=== PATIENT | female | born 1990 | race Caucasian/White ===

== ENCOUNTER 2019-02-01 11:10 | Outpatient (CLI) | payer OTHER, SELFPAY ==
[2019-02-01 11:26] VITALS: BP 151/81; PULSE 108
[2019-02-01 11:31] VITALS: BP 137/73; PULSE 101
[2019-02-01 11:46] VITALS: BP 135/69; PULSE 90
[2019-02-01 11:52] LABS: Basophils Percent Auto 0.3 % (0.2-1.2); Eosinophils Percent Auto 0.3 % (0-4.4); Hematocrit 39.3 % (37.0-47.0); Hemoglobin 12.3 g/dL (12.0-15.0); Immature Granulocyte Absolute 0.05 K/mm3 (0.00-0.031); Immature Granulocyte Percent A 0.4 % (0-0.5); Lymphocytes Absolute Auto 1.83 K/mm3 (0.9-3.2); Lymphocytes Percent Auto 16.4 % (18.3-44.2); Mean Corpuscular HGB Conc 31.3 g/dl (32-36); Mean Corpuscular Hemoglobin 28.6 pg (26-34); Mean Corpuscular Volume 91.4 fl (80-100); Mean Platelet Volume 13.5 fl (7.4-10.4); Monocytes Absolute Auto 0.8 K/mm3 (0.1-0.6); Monocytes Percent Auto 7.3 % (2.6-8.5); Neutrophils Absolute Auto 8.4 K/mm3 (1.3-6.7); Neutrophils Percent Auto 75.3 % (45.5-73.1); Platelet Count Result 160 k/mm3 (150-375); Red Cell Distribution Width 12.7 % (11.5-14.5); White Blood Count 11.2 K/mm3 (4.5-10.0)
[2019-02-01 12:01] VITALS: BP 133/69; PULSE 96
[2019-02-01 12:09] LABS: Alanine Aminotransferase 24 U/L (4-35); Albumin Level 3.5 g/dL (3.5-5.1); Alkaline Phosphatase 104 U/L (38-126); Aspartate Amino Transferase 19 U/L (14-36); Bilirubin,Total 0.1 mg/dL (0.2-1.3); Blood Urea Nitrogen 8 mg/dL (7-17); Calcium 8.6 mg/dL (8.4-10.2); Carbon Dioxide 23 mmol/L (22-30); Chloride 103 mmol/L (98-107); Estimated Glomerular Filt Rate > 60; Glucose 100 mg/dL (65-105); Potassium 4.1 mmol/L (3.4-5.0); Sodium 133 mmol/L (137-145); Uric Acid 4.8 mg/dL (2.5-7.5)
[2019-02-01 12:16] VITALS: BP 125/59; PULSE 83
--- NOTE | 2019-02-01 12:16 | PC.NURSE ---
called Dr. Lydia Hernandez and reported PIH lab result and NST result. BP updated. discharge order received.
[2019-02-01 12:22] VITALS: BP 125/59; PULSE 95
--- NOTE | 2019-02-01 12:45 | P.PNOB_ITS ---
OB - Triage/Final Diagnosis Visit Information Date of evaluation: 02/01/19 Reason for evaluation: other (htn) Evaluation Laboratory results: Laboratory Tests 02/01/19 02/01/19 11:39 11:40 WBC 11.2 H RBC 4.30 Hgb 12.3 Hct 39.3 MCV 91.4 MCH 28.6 MCHC 31.3 L RDW 12.7 Plt Count 160 MPV 13.5 H Immature Gran % (Auto) 0.4 Neut % (Auto) 75.3 H Lymph % (Auto) 16.4 L [place] % (Auto) 7.3 Eos % (Auto) 0.3 Baso % (Auto) 0.3 Lymph # (Auto) 1.83 [place] # (Auto) 0.8 H Eos # (Auto) 0.0 Baso # (Auto) 0.0 Abs Immat Gran (auto) 0.05 H Absolute Neuts (auto) 8.4 H Absolute Nucleated RBC 0.0 Nucleated RBC % 0.0 % Immature Plt Fraction 15.0 H Sodium 133 L Potassium 4.1 Chloride 103 Carbon Dioxide 23 BUN 8 Creatinine 0.60 L Estim Creat Clear Calc Not Reportable Estimated GFR > 60 Glucose 100 Uric Acid 4.8 Calcium 8.6 Total Bilirubin 0.1 L AST 19 ALT 24 Alkaline Phosphatase 104 Total Protein 7.0 Albumin 3.5 Vital signs: Vital Signs - 24 hr 02/01/19 11:26 02/01/19 11:31 02/01/19 11:46 Pulse Rate 108 H 101 H 90 Blood Pressure 151/81 H 137/73 135/69 02/01/19 12:01 02/01/19 12:16 Pulse Rate 96 83 Blood Pressure 133/69 125/59 L
== END 2019-02-01 12:25 | disposition home or self-care (01) ==
LOC: ANHOBOP 11:15 → ANHOBPP 12:20
PROVIDERS: Visit Provider Obstetrics & Gynecology
DX: O13.9 Gestational [pregnancy-induced] hypertension without significant proteinuria, unspecified trimester (principal); Z3A.00 Weeks of gestation of pregnancy not specified
CPT/HCPCS: 36415; 59025; 80053; 84550; 85025; 99199

== ENCOUNTER 2019-04-18 11:30 | Outpatient (CLI) | payer OTHER, SELFPAY ==
--- NOTE | ~2019-04-18 | US_ITS ---
EXAMINATION: US right upper quadrant DATE: 04/18/2019 13:02 INDICATION: Right upper quadrant abdominal pain TECHNIQUE: Multiple grayscale and Doppler ultrasound images of the abdomen were obtained. COMPARISON: CT dated 12/21/2014 FINDINGS: The pancreatic head and body are normal in appearance. The pancreatic tail is not visualized. Liver has normal echogenicity and contour, with a smooth surface. No liver lesion identified. No intrahepat ic biliary duct dilation suspected. Portal venous flow was seen in the hepatopetal, normal direction and has normal Doppler waveform. The visualized proximal inferior vena cava is normal. The gallbladde r is normal in appearance. There is no cholelithiasis. The common bile duct measures 4 mm, which is normal. Sonographic Crawley sign was reported as positive by the turning and beading machine operator. Visual is portions of th e right kidney demonstrates normal contour and echogenicity with no hydronephrosis. IMPRESSION: 1. Positive sonographic Crawley's but with normal-appearing nondilated gallbladder and no cholelithias is which would argue against acute cholecystitis. If there is continued clinical concern for acute ch olecystitis could consider HIDA scan for further evaluation. Reviewed, dictated and finalized at location A. ODONTIST SMALL BUSINESS OWNER IMPRESSION: 1. Positive sonographic Crawley's but with normal-appearing nondilated gallbladd er and no cholelithiasis which would argue against acute cholecystitis. If ther e is continued clinical concern for acute cholecystitis could consider HIDA sca n for further evaluation.
[2019-04-18 12:33] LABS: Basophils Percent Auto 0.5 % (0.2-1.2); Eosinophils Absolute Auto 0.1 K/mm3 (0-0.3); Eosinophils Percent Auto 0.8 % (0-4.4); Hematocrit 38.2 % (37.0-47.0); Immature Granulocyte Absolute 0.01 K/mm3 (0.00-0.031); Immature Granulocyte Percent A 0.2 % (0-0.5); Immature Platelet Fraction Pct 11.4 % (0.9-11.2); Lymphocytes Percent Auto 28.7 % (18.3-44.2); Mean Corpuscular HGB Conc 31.4 g/dl (32-36); Mean Corpuscular Hemoglobin 26.9 pg (26-34); Mean Corpuscular Volume 85.7 fl (80-100); Mean Platelet Volume 13.6 fl (7.4-10.4); Monocytes Absolute Auto 0.4 K/mm3 (0.1-0.6); Monocytes Percent Auto 6.7 % (2.6-8.5); Neutrophils Percent Auto 63.1 % (45.5-73.1); Platelet Count Result 202 k/mm3 (150-375); Red Blood Count 4.46 M/mm3 (4.2-5.4); Red Cell Distribution Width 12.6 % (11.5-14.5); White Blood Count 6.3 K/mm3 (4.5-10.0)
[2019-04-18 12:41] LABS: Alanine Aminotransferase 25 U/L (4-35); Albumin Level 4.2 g/dL (3.5-5.1); Alkaline Phosphatase 62 U/L (38-126); Amylase 51 U/L (30-110); Aspartate Amino Transferase 20 U/L (14-36); Bilirubin,Total 0.1 mg/dL (0.2-1.3); Blood Urea Nitrogen 16 mg/dL (7-17); Calcium 8.9 mg/dL (8.4-10.2); Carbon Dioxide 24 mmol/L (22-30); Chloride 102 mmol/L (98-107); Estimated Glomerular Filt Rate > 60; Glucose 86 mg/dL (65-105); Lipase 171 U/L (23-300); Sodium 138 mmol/L (137-145)
[2019-04-18 12:49] LABS: Hemoglobin A1C 5.1 % (<5.7)
== END 2019-04-18 11:31 | disposition home or self-care (01) ==
PROVIDERS: PCP Family Medicine; Visit Provider Nurse Practitioner
DX: R53.83 Other fatigue (principal); E03.9 Hypothyroidism, unspecified; R10.11 Right upper quadrant pain; Z13.1 Encounter for screening for diabetes mellitus
CPT/HCPCS: 36415; 76705; 80053; 82150; 83036; 83690; 84443; 85025; 85055

== ENCOUNTER 2019-04-26 06:40 | Outpatient (CLI) | payer OTHER, SELFPAY ==
--- NOTE | ~2019-04-26 | NM_ITS ---
EXAMINATION: NM hepatobiliary w pharm EXAM DATE: 04/26/2019 08:43 INDICATION: Cholecystitis. TECHNIQUE: 5 mCi Tc-99m mebrofenin (Choletec) was administered intravenously. Scintigraphic images o f the abdomen were obtained for one hour. At the 1 hour time point, 1.5 mcg sincalide (Kinevac) was a dministered by slow intravenous infusion, and imaging was continued for 30 minutes. Gallbladder eject ion fraction was calculated by the technologist. There is no prior study for comparison. FINDINGS: There is normal clearance of radiotracer from the blood pool. There is homogeneous tracer u ptake by the liver. Activity progresses to the gallbladder and bowel. The gallbladder ejection fract ion (GBEF) is 60 % (most patients with gallbladder dysfunction have GBEF < 35%, but there is overlap with the normal range of 10-90%). IMPRESSION: Gallbladder ejection fraction 60%, within normal range. Reviewed, dictated and finalized at location A. WINDING MACHINE OPERATOR
== END 2019-04-26 06:41 | disposition home or self-care (01) ==
PROVIDERS: Visit Provider Obstetrics & Gynecology
DX: K81.0 Acute cholecystitis (principal)
CPT/HCPCS: 78227; A9537; J2805

== ENCOUNTER 2020-01-31 14:50 | Emergency (ER) | payer OTHER, SELFPAY ==
--- NOTE | 2020-01-31 14:56 | ED.URI ---
HPI - URI/Sore Throat General Chief Complaint: Upper Respiratory Infection Stated Complaint: sore throat Time Seen by Provider: 01/31/20 14:56 Source: patient Mode of arrival: ambulatory Limitations: no limitations History of Present Illness HPI Narrative: Malissa Francois is a 29 yo female with a PMH of anxiety, GERD, who has been tested for covid without test result yet. She states that she has a worsening sore throat and wants to be checked for strep. She had initial symptoms last Wednesday with eye infection and fatigue with beginning of sore throat was tested on Wednesday for Covid and throat has been worsening since Wednesday, she finds it hard to swallow food or drink liquids, general pain in her throat Related Data Home Medications Medication Instructions Recorded Confirmed alprazolam 0.5 mg tablet 0.5 mg PO Q12-24H PRN 04/25/19 01/31/20 levonorgest-eth.estradiol-iron 1 tablet PO DAILY 01/31/20 01/31/20 [Balcoltra] Allergies Allergy/AdvReac Type Severity Reaction Status Date / Time meperidine [From Demerol] Allergy Mild Hypotension Verified 01/31/20 15:03 metformin Allergy Mild dizziness Verified 01/31/20 15:03 Review of Systems Review of Systems: Narrative: CONSTITUTIONAL: Denies fever, chills, sweats. EYES: Denies visual changes, redness, discharge. ENT: Denies rhinorrhea, mild congestion, complaining of severe sore throat, otalgia. CARDIOVASCULAR: Denies chest pain, palpitations, edema. RESPIRATORY: Denies dyspnea, wheezing, cough GASTROINTESTINAL: Denies abdominal pain, nausea, vomiting, diarrhea. GENITOURINARY: Denies dysuria, hematuria, abnormal discharge SKIN: Denies rash or itching. NEUROLOGIC: Denies numbness, or focal weakness. PSYCHIATRIC: Denies anxiety or depression. [facility] Past Medical History Medical History (Updated 01/31/20 @ 15:09 by Isabel Lugo CNP) Anxiety GERD (gastroesophageal reflux disease) Morbid obesity Surgical History Surgical History History of endometriosis laparoscopic exploratory History of esophagogastroduodenoscopy (EGD) Family History Family History Father Family history of mental disorder Depression Grandparent Family history of lung cancer Family history of malignant neoplasm of uterus Family history of malignant neoplasm of breast Mother Patient's mother is in good health Other Family history of attention deficit hyperactivity disorder (ADHD) Family history of obesity Unknown family medical history Social History Social History Years smoked: 10 Smoking status: Former smoker Tobacco type: cigarettes Second hand tobacco smoke exposure: No Smoking end date: 03/08/16 Alcohol intake: never Substance use: never Gender identity (if verbalized by the patient): Female Spiritual care concerns: No Comments At time of signature, I agree with nursing past medical, surgical, social and family history. There is no relevant family history pertinent to the presenting complaint. Exam Narrative: Exam Narrative: GENERAL: This is a well-nourished, well-developed patient, in mild distress. HEAD: normocephalic, atraumatic. EYES: Sclera clear/white. Vision is grossly intact. EARS: External ears normal. Hearing grossly intact. NOSE: External nose normal without nasal discharge, nares without redness, mild rhinorrhea. THROAT: Mucous membranes moist, posterior pharynx very erythematous with peritonsillar swelling, left white dots in the back of the throat NECK: Neck supple, tender with swallowing or palpation CARDIOVASCULAR: Regular rate and rhythm without murmurs, gallops, or rubs. RESPIRATORY: Clear to auscultation. Breath sounds equal bilaterally. No wheezes, rales, or rhonchi. GASTROINTESTINAL: Abdomen soft, SKIN: warm, intact with no suspicious lesions or rash, good texture
[2020-01-31 15:01] VITALS: BP 136/75; PULSE 98; RESP 20; TEMP 36.4; O2SAT 99
== END 2020-01-31 15:30 | disposition home or self-care (01) ==
PROVIDERS: Emergency Provider Nurse Practitioner
DX: J02.9 Acute pharyngitis, unspecified (principal); Z87.891 Personal history of nicotine dependence; F41.9 Anxiety disorder, unspecified; K21.9 Gastro-esophageal reflux disease without esophagitis; E66.01 Morbid (severe) obesity due to excess calories; Z68.39 Body mass index [BMI] 39.0-39.9, adult
CPT/HCPCS: 87081; 87880; 99213; G0463

== ENCOUNTER 2020-03-26 07:22 | Emergency (ER) | payer OTHER, SELFPAY ==
--- NOTE | ~2020-03-26 | XR_ITS ---
EXAMINATION: XR finger 1st LT min 2V EXAM DATE: 03/26/2020 07:45 INDICATION: Cut the distal end of finger yesterday with a knife . Initial encounter. TECHNIQUE: Left 1st finger frontal, lateral and oblique projections obtained and reviewed. There i s no prior study for comparison. FINDINGS: There are no acute fractures or dislocations identified. There is no subcutaneous gas. Th e soft tissue is unremarkable. There are no radiopaque foreign bodies. IMPRESSION: Unremarkable left 1st finger. Reviewed, dictated and finalized at location A. IUM PROCESSING SUPERVISOR
[2020-03-26 07:23] VITALS: BP 152/88; PULSE 80; RESP 16; TEMP 36.6; O2SAT 100
[2020-03-26] MEDS: TETANUS,DIPHTHERIA,AC PERTUSSIS ADULT (0.5 ML) BOOSTRIX IM (07:54)
[2020-03-26] MEDS: IBUPROFEN 400 MG TABLET 800 MG PO (08:25)
--- NOTE | 2020-03-26 08:33 | ED.WOUNDLAC ---
HPI - Wound/Laceration General Chief Complaint: Wound/Laceration Stated Complaint: left thumb laceration Time Seen by Provider: 03/26/20 07:30 History of Present Illness HPI narrative: Patient is a 29-year-old female who presents ER with injury to the distal aspect of her right thumb. Patient was cutting a wax block with a knife when she stabbed herself with a steak knife. This occurred at 1 PM yesterday. She immediately washed it with soap and water and peroxide. She applied a pressure dressing. Its been throbbing through the night and she is noticed that she has had some numbness over the tip of her thumb so she opted to come in for evaluation. Tetanus is not up-to-date. She maintains full range of motion. Bleeding is controlled. She is unsure if the blade went all the way through her fingernail or not but does know that she struck her nail. Related Data Home Medications Medication Instructions Recorded Confirmed alprazolam 0.5 mg tablet 0.5 mg PO Q12-24H PRN 04/25/19 02/27/20 levonorgest-eth.estradiol-iron 1 tablet PO DAILY 01/31/20 02/27/20 [Balcoltra] Allergies Allergy/AdvReac Type Severity Reaction Status Date / Time meperidine [From Demerol] AdvReac Mild Hypotension Verified 03/26/20 07:36 metformin AdvReac Mild dizziness Verified 03/26/20 07:36 Review of Systems Constitutional: Constitutional: Denies chills and Denies fever(s) Musculoskeletal: Comments: Throbbing right first digit pain. Integumentary/Breasts: Comments: Laceration right first digit, no excessive bleeding Neurologic: Denies focal weakness and Reports numbness PMFSH Past Medical History Medical History (Updated 03/26/20 @ 08:37 by Carlos Jaramillo MD) Anxiety GERD (gastroesophageal reflux disease) Morbid obesity Surgical History Surgical History History of endometriosis laparoscopic exploratory History of esophagogastroduodenoscopy (EGD) Family History Family History Father Family history of mental disorder Depression Grandparent Family history of lung cancer Family history of malignant neoplasm of uterus Family history of malignant neoplasm of breast Mother Patient's mother is in good health Other Family history of attention deficit hyperactivity disorder (ADHD) Family history of obesity Unknown family medical history Social History Social History Years smoked: 10 Smoking status: Former smoker Tobacco type: cigarettes Second hand tobacco smoke exposure: No Smoking end date: 03/08/16 Alcohol intake: never Substance use: never Gender identity (if verbalized by the patient): Female Spiritual care concerns: No Exam Narrative: Exam Narrative: GENERAL: Well-appearing, well-nourished, and in no acute distress. HEAD: Normocephalic, atraumatic. EXTREMITIES: Focused exam of the right hand reveals full range of motion normal strength. Furthermore isolation of the first digit in isolation of each joint reveals normal strength and range of motion. There is a 1.5 cm laceration over the palmar aspect of the right first digit at the distal tip of the finger wrapping around the radial aspect of the thumb towards the nail. No significant trauma to the nail can be identified. There is loss of sharp touch distal to the laceration over the tip of the finger however proximally there is no loss of sharp or soft sensation. SKIN: Warm, dry, no rash. NEURO: Alert and oriented x3. PSYCH: Normal mood and affect. Course Course Emergency Course: Wound well approximated seems to be healing. No evidence of infection. X-ray shows no violation of the bone. Educated patient on signs and symptoms of infection. Tetanus updated. Patient given a protective aluminum splint for work. Vital Signs Vital signs: Vital Signs Temperature 97.9 F 03/26/20 07:23
--- NOTE | 2020-03-28 07:54 | PC.NURSE ---
LATE ENTRY- VORB- METAL FINGER SPLINT PLACED ON PT'S L THUMB PER DR OROZCO ORDER.
== END 2020-03-26 08:40 | disposition home or self-care (01) ==
PROVIDERS: Emergency Provider Emergency Medicine; PCP Nurse Practitioner
DX: S61.012A Laceration without foreign body of left thumb without damage to nail, initial encounter (principal); S64.32XA Injury of digital nerve of left thumb, initial encounter; K21.9 Gastro-esophageal reflux disease without esophagitis; F41.9 Anxiety disorder, unspecified; E66.01 Morbid (severe) obesity due to excess calories; Z68.41 Body mass index [BMI] 40.0-44.9, adult; Z87.891 Personal history of nicotine dependence; Z23 Encounter for immunization; W26.0XXA Contact with knife, initial encounter
CPT/HCPCS: 29130; 73140; 90471; 90715; 99283; A9270

== ENCOUNTER 2020-05-09 08:46 | Outpatient (CLI) | payer OTHER, SELFPAY ==
--- NOTE | 2020-05-09 09:02 | ECG_ITS ---
Measurements Intervals [place] Rate: 87 P: 7 MA: 149 QRS: 6 QRSD: 94 T: 15 QT: 351 QTc: 423 Interpretive Statements SINUS RHYTHM BORDERLINE T WAVE ABNORMALITY- INFERIOR LEADS BORDERLINE ECG Electronically Signed On 05-09-2020 9:29:44 [employer] by Jaren Esquivel D.O.
[2020-05-09 09:04] LABS: Basophils Percent Auto 0.4 % (0.2-1.2); Eosinophils Absolute Auto 0.1 K/mm3 (0-0.3); Hematocrit 41.6 % (37.0-47.0); Hemoglobin 13.7 g/dL (12.0-15.0); Immature Granulocyte Absolute 0.02 K/mm3 (0.00-0.031); Immature Granulocyte Percent A 0.3 % (0-0.5); Lymphocytes Absolute Auto 1.94 K/mm3 (0.9-3.2); Lymphocytes Percent Auto 29.1 % (18.3-44.2); Mean Corpuscular HGB Conc 32.9 g/dl (32-36); Mean Corpuscular Hemoglobin 28.1 pg (26-34); Mean Corpuscular Volume 85.4 fl (80-100); Mean Platelet Volume 12.8 fl (7.4-10.4); Monocytes Absolute Auto 0.5 K/mm3 (0.1-0.6); Monocytes Percent Auto 7.2 % (2.6-8.5); Neutrophils Absolute Auto 4.1 K/mm3 (1.3-6.7); Platelet Count Result 200 k/mm3 (150-375); Red Blood Count 4.87 M/mm3 (4.2-5.4); Red Cell Distribution Width 12.7 % (11.5-14.5); White Blood Count 6.7 K/mm3 (4.5-10.0)
[2020-05-09 09:18] LABS: Alanine Aminotransferase 20 U/L (4-35); Alkaline Phosphatase 64 U/L (38-126); Anion Gap 4 mmol/L (8-16); Aspartate Amino Transferase 20 U/L (14-36); Bilirubin,Total 0.3 mg/dL (0.2-1.3); Blood Urea Nitrogen 10 mg/dL (7-17); Calcium 8.7 mg/dL (8.4-10.2); Carbon Dioxide 27 mmol/L (22-30); Chloride 106 mmol/L (98-107); Cholesterol 179 mg/dL (0-200); Estimated Glomerular Filt Rate > 60; Glucose 104 mg/dL (65-105); HDL Direct 41 mg/dL; Potassium 4.4 mmol/L (3.4-5.0); Sodium 137 mmol/L (137-145); Triglycerides 174 mg/dL (<150)
[2020-05-09 09:29] LABS: LDL Cholesterol Direct 109 mg/dL
== END 2020-05-09 08:47 | disposition home or self-care (01) ==
PROVIDERS: PCP Nurse Practitioner; Visit Provider Nurse Practitioner
DX: Z01.818 Encounter for other preprocedural examination (principal)
CPT/HCPCS: 36415; 80053; 80061; 84443; 85025; 93005

== ENCOUNTER 2020-05-30 09:23 | Outpatient (CLI) | payer OTHER, SELFPAY | END 2020-05-30 09:24 | disposition home or self-care (01) | LOC: ANHLAB 09:32 | PROVIDERS: PCP Nurse Practitioner | DX: Z01.818 Encounter for other preprocedural examination (principal) | CPT/HCPCS: 36415; 80323; G0480 ==

== ENCOUNTER 2020-07-04 14:07 | Outpatient (CLI) | payer OTHER, SELFPAY ==
--- NOTE | ~2020-07-04 | US_ITS ---
EXAMINATION: US right upper quadrant EXAM DATE: 07/04/2020 14:36 INDICATION: Right upper quadrant pain. TECHNIQUE: Multiple grayscale and Doppler images of the abdomen right upper quadrant were obtained (b y a technologist who performed the scan) and subsequently reviewed. Comparison is made to prior exami nation from 04/18/2019. FINDINGS: The pancreatic head and body are normal in appearance. The pancreatic tail is not visualized. The l iver has normal echogenicity and contour. There are no focal liver lesions identified. There is no evidence of intrahepatic biliary duct dilation. Portal venous flow was seen in the hepatopedal, nor mal direction and has normal Doppler waveform. No right-sided hydronephrosis. Common bile duct measures 4 mm, which is normal. The gallbladder wall is normal in thickness, with ex pected amount of distention. No sonographic evidence of pericholecystic fluid. There is no cholelit hiases. Technologist performing exam reports patient did not demonstrate sonographic Crawley's sign. Please note that this sign is less reliable in patients who have received pain medication. IMPRESSION: 1. Unremarkable abdominal ultrasound exam. Reviewed, dictated and finalized at location A.
== END 2020-07-04 14:08 | disposition home or self-care (01) ==
PROVIDERS: PCP Nurse Practitioner
DX: R10.11 Right upper quadrant pain (principal)
CPT/HCPCS: 76705

== ENCOUNTER 2021-05-15 23:09 | Emergency (ER) | payer OTHER, SELFPAY ==
[2021-05-15 23:12] VITALS: BP 147/97; PULSE 116; RESP 20; TEMP 36.4; O2SAT 98
--- NOTE | 2021-05-15 23:34 | ED.FEMALEGU ---
HPI - Female Genitourinary General Chief complaint: ELECTRONIC EQUIPMENT REPAIRMEN Stated complaint: pelvic pain Time Seen by Provider: 05/15/21 23:18 Source: patient Mode of arrival: ambulatory Limitations: no limitations History of Present Illness HPI Narrative: 30 year old female presents today with complaints of pelvic pain. Patient has history of PCOS and endometriosis. Patient states the pain feels almost like a contraction. She does endorse urinary frequency but denies dysuria. Denies fever, body aces, chills, or back pain. Related Data Home Medications Medication Instructions Recorded Confirmed alprazolam 0.5 mg tablet 0.5 mg PO Q12-24H PRN 04/25/19 08/24/20 Allergies Allergy/AdvReac Type Severity Reaction Status Date / Time meperidine [From Demerol] AdvReac Mild Hypotension Verified 05/15/21 23:15 metformin AdvReac Mild dizziness Verified 05/15/21 23:15 Review of Systems Review of Systems: CONSTITUTIONAL: Denies fever, chills, or sweats. EYES: Denies visual changes, redness, or discharge. ENT: Denies rhinorrhea, congestion, sore throat, or otalgia. CARDIOVASCULAR: Denies chest pain, palpitations, or edema. RESPIRATORY: Denies cough or dyspnea. GASTROINTESTINAL: Pelvic pain. Denies abdominal pain, nausea, vomiting, or diarrhea. GENITOURINARY: Increased urinary frequency. Denies dysuria or hematuria. SKIN: Denies rash or itching. MUSCULOSKELETAL: Denies back pain, joint pain, or myalgia. NEUROLOGIC: Denies headache, numbness, dizziness, or weakness. PSYCHIATRIC: Denies anxiety or depression. [facility] Past Medical History Medical History Anxiety GERD (gastroesophageal reflux disease) Morbid obesity Surgical History Surgical History History of endometriosis laparoscopic exploratory History of esophagogastroduodenoscopy (EGD) Family History Family History Father Family history of mental disorder Depression Grandparent Family history of lung cancer Family history of malignant neoplasm of uterus Family history of malignant neoplasm of breast Mother Patient's mother is in good health Other Family history of attention deficit hyperactivity disorder (ADHD) Family history of obesity Unknown family medical history Social History Social History (Updated 08/20/20 @ 14:41 by Zulma Montgomery) Social History: Years smoked: 10 Smoking status: Former smoker Tobacco type: cigarettes Second hand tobacco smoke exposure: No Smoking end date: 03/08/16 Alcohol intake: never Substance use: never Substance use type: does not use Gender identity (if verbalized by the patient): Female Sexual Orientation (if Verbalized by the Patient): Straight or Heterosexual Spiritual care concerns: No Exam Narrative: GENERAL: Well-appearing, well-nourished, and in no acute distress. HEAD: Normocephalic, atraumatic. EYES: PERRLA and EOMI. ENT: Nares clear, no rhinorrhea or epistaxis. Mucous membranes moist. Oropharynx without tonsillar hypertrophy exudate or other lesions. Bilateral TMs pearly restrepo nonbulging NECK: Supple. No adenopathy or masses. No carotid bruits or JVD CHEST: Clear to auscultation. No respiratory distress. No wheezes rales or rhonchi HEART: Regular rate and rhythm. No murmur heard. Normal peripheral pulses. ABDOMEN: Soft, nontender, nondistended, normal active bowel sounds. EXTREMITIES: Normal range of motion. No edema. SKIN: Warm, dry, no rash. NEURO: No focal deficits. Alert and oriented x3. PSYCH: Normal mood and affect. Course Course Emergency Course: Reviewed lab results with patient. Patient to be treated for UTI. Return with any new or worsening symptoms. Patient in agreement with plan of care. Vital Signs Vital signs: Vital Signs Temperature 36.4 C 05/15/21 23:12 Pulse Rate 116 H 05/15/21 23:12 Res
[2021-05-15 23:49] LABS: Add Urine Microscopic? YES; Appearance Urine Clear (Clear); Bilirubin Urine Negative (Negative); Blood Urine Negative (Negative); Color Urine Yellow (Yellow); Glucose Urine UA Negative (Negative); Ketones Urine Negative (Negative); Leukocyte Esterase Ur 3+ LEU/UL (Negative); Mucus Urine Rare /lpf; Nitrate Urine Negative (Negative); Protein Urine Negative (Negative); RBC Urine 0-2 /hpf (0-2); Specific Grav Ur 1.026 (1.001-1.035); Squamous Epithelial Cell Urine Few /hpf (Few); Urobilinogen Urine Negative mg/dL (<2.0)
[2021-05-15] MEDS: KETOROLAC 30 MG/ML VIAL (*BKC) IM (23:56)
[2021-05-16] MEDS: PHENAZOPYRIDINE HCL 100 MG TABLET 200 MG PO (00:17)
[2021-05-16] MEDS: NITROFURANTOIN MONOHYD MACROCR 100 MG CAP PO (00:18)
[2021-05-16 00:22] VITALS: BP 146/67; PULSE 86; RESP 18; O2SAT 100
== END 2021-05-16 00:23 | disposition home or self-care (01) ==
LOC: ANHED 05-16 00:11
PROVIDERS: Emergency Provider Nurse Practitioner Family; PCP Family Medicine
DX: N30.00 Acute cystitis without hematuria (principal); E28.2 Polycystic ovarian syndrome; N80.9 Endometriosis, unspecified; K21.9 Gastro-esophageal reflux disease without esophagitis; F41.9 Anxiety disorder, unspecified; E66.01 Morbid (severe) obesity due to excess calories; Z68.25 Body mass index [BMI] 25.0-25.9, adult; Z87.891 Personal history of nicotine dependence
CPT/HCPCS: 81001; 81025; 87086; 87088; 87491; 87591; 96372; 99283; A9270; J1885

== ENCOUNTER 2021-08-31 16:12 | Emergency (ER) | payer OTHER, SELFPAY ==
--- NOTE | ~2021-08-31 | US_ITS ---
EXAMINATION: US OB <=14 wk fetus w TV INDICATION: and bleeding TECHNIQUE: Sonography of the pelvis was performed by transabdominal and transvaginal techniques. COMPARISON: None. RESULT: Uterus: - Orientation: Anteverted - Size: 11.8 x 6.5 x 9.8 cm - Myometrium: homogeneous echogenicity Gestation: - Intrauterine gestational sac: Single present - Yolk sac: 0.58 cm - Embryo: Not seen - Champ rump length: 3.44 cm, corresponding gestational age 10 weeks, 2 days -Gestational heart rate: present 178 bpm -Subgestational hematoma: Absent Right ovary: - Size : Not visualized. Left ovary: - Size: 4.4 x 2.4 x 4.4 cm - Normal sonographic appearance with physiologic follicles. Simple cysts. Pelvis free fluid: None. IMPRESSION: Single, live intrauterine gestation. Estimated Gestational Age: 10 weeks, 2 days by crown rump length. BENITO by ultrasound 03/27/2022. Reviewed, dictated and finalized at location K. IMPRESSION: Single, live intrauterine gestation. Estimated Gestational Age: 10 weeks, 2 days by crown rump length. BENITO by ultra sound 03/27/2022.
[2021-08-31 16:16] VITALS: BP 128/62; PULSE 103; RESP 16; TEMP 36.8; O2SAT 100
[2021-08-31] MEDS: SODIUM CHLORIDE 0.9% IV 1,000 ML 999 ML IV CONT (16:33)
[2021-08-31 16:37] LABS: Basophils Percent Auto 0.2 % (0.2-1.2); Eosinophils Percent Auto 0.2 % (0-4.4); Hematocrit 35.7 % (37.0-47.0); Immature Granulocyte Absolute 0.03 K/mm3 (0.00-0.031); Immature Granulocyte Percent A 0.3 % (0-0.5); Lymphocytes Absolute Auto 1.87 K/mm3 (0.9-3.2); Lymphocytes Percent Auto 19.3 % (18.3-44.2); Mean Corpuscular HGB Conc 33.6 g/dl (32-36); Mean Corpuscular Hemoglobin 29.9 pg (26-34); Mean Corpuscular Volume 88.8 fl (80-100); Mean Platelet Volume 12.6 fl (7.4-10.4); Monocytes Absolute Auto 0.6 K/mm3 (0.1-0.6); Monocytes Percent Auto 5.9 % (2.6-8.5); Neutrophils Absolute Auto 7.2 K/mm3 (1.3-6.7); Neutrophils Percent Auto 74.1 % (45.5-73.1); Platelet Count Result 202 k/mm3 (150-375); Red Blood Count 4.02 M/mm3 (4.2-5.4); Red Cell Distribution Width 13.2 % (11.5-14.5); White Blood Count 9.7 K/mm3 (4.5-10.0)
--- NOTE | 2021-08-31 16:52 | PC.NURSE ---
pt. to US
[2021-08-31 16:57] LABS: Alanine Aminotransferase 24 U/L (6-35); Alkaline Phosphatase 43 U/L (38-126); Anion Gap 6 mmol/L (8-16); Aspartate Amino Transferase 21 U/L (14-36); Bilirubin,Total 0.2 mg/dL (0.2-1.3); Blood Urea Nitrogen 13 mg/dL (7-17); Calcium 8.7 mg/dL (8.4-10.2); Carbon Dioxide 25 mmol/L (22-30); Chloride 103 mmol/L (98-107); Estimated CRCL calculation 135 ml/min; Estimated Glomerular Filt Rate > 60; Glucose 87 mg/dL (65-110); Potassium 4.4 mmol/L (3.4-5.0); Sodium 134 mmol/L (137-145)
--- NOTE | 2021-08-31 17:04 | ED.GENADULT ---
HPI - General Adult General Chief complaint: Vaginal Bleeding Stated complaint: 9 wks , bleeding Time Seen by Provider: 08/31/21 16:15 Source: RN notes reviewed History of Present Illness HPI narrative: Patient presents emergency department from home for vaginal bleeding. Patient states she is approximately 9 weeks and is followed by Dr. Lydia Hernandez. Patient states she is G2, P1 states that just prior to arrival she began to have vaginal bleeding that went through [address] Jones and was recommended come the ER for further evaluation. Patient states that this time the bleeding has improved she states she does have lower abdominal pain described as cramping she denies any fevers chills chest pain shortness of breath or any other symptoms patient states she has had an ultrasound in the office showing a live intrauterine Related Data Allergies Allergy/AdvReac Type Severity Reaction Status Date / Time meperidine [From Demerol] AdvReac Mild Hypotension Verified 08/31/21 16:35 metformin AdvReac Mild dizziness Verified 08/31/21 16:35 Review of Systems Review of Systems: Gen.: Denies fevers or chills ENT: Denies congestion Respiratory: Denies shortness of breath or cough CV: Denies chest pain or palpitations GI: Reports lower abdominal pain denies nausea vomiting diarrhea see HPI Musculoskeletal: Denies back pain or muscle pain Neuro: Denies numbness, tingling, weakness or focal weakness Skin: Denies rash Except as documented, all other systems reviewed and negative [facility] Past Medical History Medical History Anxiety Encounter for general adult medical examination without abnormal findings GERD (gastroesophageal reflux disease) Morbid obesity Surgical History Surgical History History of endometriosis laparoscopic exploratory History of esophagogastroduodenoscopy (EGD) Family History Family History Father Family history of mental disorder Depression Grandparent Family history of lung cancer Family history of malignant neoplasm of uterus Family history of malignant neoplasm of breast Mother Patient's mother is in good health Other Family history of attention deficit hyperactivity disorder (ADHD) Family history of obesity Unknown family medical history Social History Social History Social History: Years smoked: 10 Smoking status: Former smoker Tobacco type: cigarettes Second hand tobacco smoke exposure: No Smoking end date: 03/08/16 Alcohol intake: never Substance use: never Substance use type: does not use Gender identity (if verbalized by the patient): Female Sexual Orientation (if Verbalized by the Patient): Straight or Heterosexual Spiritual care concerns: No Exam Narrative: APPEARANCE: No acute distress, nontoxic, resting in bed EYES: EOMI HEENT: Normocephalic, atraumatic, OMM RESPIRATORY: No respiratory distress Clear to auscultation bilaterally with no rhonchi wheezing or rales. CARDIOVASCULAR: Regular rate and rhythm without murmurs rubs or gallops. ABDOMINAL: Soft, nontender, nondistended, no rebound or guarding : Normal external exam small amount of dark brown blood in vaginal canal cervix is closed MUSCULOSKELETAl: Moves all extremities. No clubbing, cyanosis or edema. NEURO: Awake and alert. Following commands, speech normal, no focal deficits SKIN:: Warm, dry. No rashes lesions or abrasions PSYCHIATRIC: Normal affect/mood, Course Course Emergency Course: Patient with A +blood type from 02/[address] Jones presentation work-up agrees with plan for discharge with follow-up as an outpatient Discussed with patient results of workup and diagnosis. Discussed need for follow-up with primary care,
[2021-08-31 17:55] VITALS: BP 131/79; PULSE 83; RESP 14; O2SAT 100
[2021-08-31 18:20] VITALS: BP 123/85; PULSE 80; RESP 16; O2SAT 97
== END 2021-08-31 18:20 | disposition home or self-care (01) ==
PROVIDERS: Emergency Provider Emergency Medicine; PCP Obstetrics & Gynecology
DX: O20.0 Threatened abortion (principal); O99.611 Diseases of the digestive system complicating pregnancy, first trimester; K21.9 Gastro-esophageal reflux disease without esophagitis; O99.341 Other mental disorders complicating pregnancy, first trimester; F41.9 Anxiety disorder, unspecified; Z3A.10 10 weeks gestation of pregnancy; Z87.891 Personal history of nicotine dependence
CPT/HCPCS: 36415; 76801; 76817; 80053; 84702; 85025; 99284; J0131; J7030

== ENCOUNTER 2022-03-09 16:16 | Outpatient (CLI) | payer OTHER, SELFPAY ==
--- NOTE | 2022-03-10 07:17 | PM.OBTRLD ---
OB - Triage/Final Diagnosis Visit Information Date of evaluation: 04/09/22 Reason for evaluation: other (leaking) Comments/Additional reasons for admission: I have assessed the risk for this patient, Malissa Pinedoon, and determined that she would benefit from observation care.
== END 2022-03-09 17:01 | disposition home or self-care (01) ==
LOC: ANHOBOP 16:54 → ANHOBPP 16:54
PROVIDERS: Visit Provider Obstetrics & Gynecology
DX: O42.90 Premature rupture of membranes, unspecified as to length of time between rupture and onset of labor, unspecified weeks of gestation (principal)
CPT/HCPCS: 59025; 84112; 99199

== ENCOUNTER 2022-03-23 04:55 | Inpatient (IN) | payer OTHER, SELFPAY ==
[2022-03-23] VITALS (78 sets, daily range): BP systolic 92–144; BP diastolic 34–107; PULSE 63–194; RESP 16–18; TEMP 36.6–37.1; O2SAT 98–100; BMI 34.8
--- NOTE | 2022-03-23 04:55 | LDADM ---
This patient, Malissa Francois, was admitted to Labor/Delivery/Recovery 107 on 03/23/22 at 04:55. Plans for labor, pain management and were discussed with patient. Patient/family oriented to hospital policies and general routines including ID bracelet, bed and alarms, visiting hours, pain management, procedures, bathroom and other care routines, personal items, smoking policy, room service/diet and guest tray routines, security routines, and visiting hours. Patient/Family are encouraged to report perceived risks to care and to ask questions if they do not understand what they are told or what they should do. See OBIX for further documentation.
[2022-03-23] MEDS: OXYTOCIN 30 UNITS/NS 500 ML 30 UNITS/500 ML BAG IV CONT (05:45)
[2022-03-23] MEDS: LACTATED RINGERS 1,000 ML 125 ML IV CONT ×3 (05:45→09:28)
[2022-03-23 05:50] LABS: Basophils Percent Auto 0.5 % (0.2-1.2); Eosinophils Absolute Auto 0.1 K/mm3 (0-0.3); Eosinophils Percent Auto 0.6 % (0-4.4); Hematocrit 32.6 % (37.0-47.0); Hemoglobin 10.5 g/dL (12.0-15.0); Immature Granulocyte Absolute 0.02 K/mm3 (0.00-0.031); Immature Granulocyte Percent A 0.2 % (0-0.5); Lymphocytes Absolute Auto 2.57 K/mm3 (0.9-3.2); Lymphocytes Percent Auto 31.7 % (18.3-44.2); Mean Corpuscular HGB Conc 32.2 g/dl (32-36); Mean Corpuscular Hemoglobin 26.2 pg (26-34); Mean Corpuscular Volume 81.3 fl (80-100); Mean Platelet Volume 13.5 fl (7.4-10.4); Monocytes Absolute Auto 0.4 K/mm3 (0.1-0.6); Monocytes Percent Auto 4.8 % (2.6-8.5); Neutrophils Absolute Auto 5.1 K/mm3 (1.3-6.7); Neutrophils Percent Auto 62.2 % (45.5-73.1); Platelet Count Result 183 k/mm3 (150-375); Red Blood Count 4.01 M/mm3 (4.2-5.4); Red Cell Distribution Width 12.8 % (11.5-14.5); White Blood Count 8.1 K/mm3 (4.5-10.0)
--- NOTE | 2022-03-23 06:50 | PM.IMHP ---
H&P: HPI History of Present Illness Date/Time: 03/23/22 06:50 Chief Complaint: Term Narrative: 31-year-old 2 para 1 at term for induction of labor. Her last menstrual period was in June with an EDC of 03/29/2022 confirmed by 7 week ultrasound presents at 39 weeks gestation for induction of labor she negative for group B strep in her cervix is favorable PMFSH Past Medical History Medical History Anxiety Encounter for general adult medical examination without abnormal findings GERD (gastroesophageal reflux disease) Morbid obesity Surgical History Surgical History History of endometriosis laparoscopic exploratory History of esophagogastroduodenoscopy (EGD) Family History Family History Father Family history of mental disorder Depression Grandparent Family history of lung cancer Family history of malignant neoplasm of uterus Family history of malignant neoplasm of breast Mother Patient's mother is in good health Other Family history of attention deficit hyperactivity disorder (ADHD) Family history of obesity Unknown family medical history Social History Social History Social History: Years smoked: 10 Smoking status: Former smoker Tobacco type: cigarettes Second hand tobacco smoke exposure: No Smoking end date: 03/08/16 Alcohol intake: never Substance use: never Substance use type: does not use Lack of Transportation: No Lack of Food: Never True Current Housing: I Have Housing Concerned About Future Housing: No Difficulty Paying Gas/Electric Bills: No Difficulty Paying for Meds: No Currently Unemployed: No Education: Don't Know Difficulty w/ Childcare or Family Care: No Gender identity (if verbalized by the patient): Female Sexual Orientation (if Verbalized by the Patient): Straight or Heterosexual Spiritual care concerns: No Meds Home Medications and Allergies Home Medications Medication Instructions Recorded Confirmed Type vit no.95-ferrous 1 tablet PO DAILY 02/26/22 03/23/22 History fumarate 28 mg-folic acid 800 mcg tablet () ondansetron HCl 4 mg tablet 4 mg PO Q6-12H PRN Nausea 03/23/22 03/23/22 History valacyclovir 500 mg tablet 500 mg PO DAILY 03/23/22 03/23/22 History Allergies Allergy/AdvReac Type Severity Reaction Status Date / Time meperidine [From Demerol] AdvReac Mild Hypotension Verified 08/31/21 16:35 metformin AdvReac Mild dizziness Verified 08/31/21 16:35 Vital Signs Vital Signs - 24 hr 03/23/22 05:27 03/23/22 05:30 03/23/22 05:45 Temperature 98.3 F Pulse Rate 87 89 85 Respiratory Rate 16 Blood Pressure 132/66 130/68 123/75 03/23/22 06:15 03/23/22 06:30 Temperature 98.8 F Pulse Rate 89 83 Respiratory Rate Blood Pressure 112/71 100/68 Exam Const: General: cooperative, healthy appearing and comfortable Nutritional Appearance: average body habitus Orientation/consciousness: oriented to person, oriented to place and oriented to time HENMT: Head: normal to inspection Resp: Effort & Inspection: normal respiratory effort Cardio: Rate: regular rate Rhythm: regular rhythm Heart sounds: S1 normal heart sound present and S2 normal heart sound present GI: Inspection: normal to inspection ( fundus soft) : External Female Exam: normal external appearance Speculum Exam - Vagina: normal appearance of the vagina Speculum Exam - Cervix: normal appearance of the cervix ( cervix 4/ 90/-1. AROM clear. FHT is reassuring) H&P: Results Labs Labs: Short CBC 03/23/22 Range/Units 05:42 WBC 8.1 (4.5-10.0) K/mm3 Hgb 10.5 L (12.0-15.0) g/dL Hct 32.6 L (37.0-47.0) % Plt Count 183 (150-375) k/mm3 Assessme
[2022-03-23 07:07] LABS: Amphetamine Screen Urine Negative (Negative); Barbiturate Screen Urine Negative (Negative); Benzodiazepines Screen Urine Negative (Negative); Cannabinoid Screen Urine Negative (Negative); Cocaine Screen Urine Negative (Negative); Methadone Screen Urine Negative (Negative); Opiate Screen Urine Negative (Negative); Phencyclidine Screen Urine Negative (Negative)
--- NOTE | 2022-03-23 08:43 | WPDANESEPPF ---
Anes - Initial Pre Proc Eval Procedure: labor epidural Date/Time: 03/23/22 08:43 Surgeon: Joon Hernandez MD Pre Op Diagnosis: labor pain Pre Op Diagnosis: iol Patient Data Age: 31 Gender: F Height: 1.75 m Weight: 107 kg Last Vital Signs Temp 37.1 C 03/23/22 06:30 Pulse 73 03/23/22 08:33 Resp 16 03/23/22 05:27 BP 131/79 03/23/22 08:33 Pulse Ox 100 03/23/22 08:43 Allergies Allergy/AdvReac Type Severity Reaction Status Date / Time meperidine [From Demerol] AdvReac Mild Hypotension Verified 08/31/21 16:35 metformin AdvReac Mild dizziness Verified 08/31/21 16:35 Home Medications Medication Instructions Recorded Confirmed Type vit no.95-ferrous 1 tablet PO DAILY 02/26/22 03/23/22 History fumarate 28 mg-folic acid 800 mcg tablet () ondansetron HCl 4 mg tablet 4 mg PO Q6-12H PRN Nausea 03/23/22 03/23/22 History valacyclovir 500 mg tablet 500 mg PO DAILY 03/23/22 03/23/22 History Laboratory Tests 03/23/22 03/23/22 03/23/22 05:42 05:42 05:42 WBC 8.1 K/mm3 K/mm3 (4.5-10.0) RBC 4.01 M/mm3 L M/mm3 (4.2-5.4) Hgb 10.5 g/dL L g/dL (12.0-15.0) Hct 32.6 % L % (37.0-47.0) MCV 81.3 fl fl (80-100) MCH 26.2 pg pg (26-34) MCHC 32.2 g/dl g/dl (32-36) RDW 12.8 % % (11.5-14.5) Plt Count 183 k/mm3 k/mm3 (150-375) MPV 13.5 fl H fl (7.4-10.4) Immature Gran % (Auto) 0.2 % % (0-0.5) Neut % (Auto) 62.2 % % (45.5-73.1) Lymph % (Auto) 31.7 % % (18.3-44.2) Tate % (Auto) 4.8 % % (2.6-8.5) Eos % (Auto) 0.6 % % (0-4.4) Baso % (Auto) 0.5 % % (0.2-1.2) Lymph # (Auto) 2.57 K/mm3 K/mm3 (0.9-3.2) Tate # (Auto) 0.4 K/mm3 K/mm3 (0.1-0.6) Eos # (Auto) 0.1 K/mm3 K/mm3 (0-0.3) Baso # (Auto) 0.0 K/mm3 K/mm3 (0.0-0.1) Abs Immat Gran (auto) 0.02 K/mm3 K/mm3 (0.00-0.031) Absolute Neuts (auto) 5.1 K/mm3 K/mm3 (1.3-6.7) Absolute Nucleated RBC 0.0 K/mm3 K/mm3 (0.0-0.012) Nucleated RBC % 0.0 % % (0.0-0.2) % Immature Plt Fraction 17.0 % H % (0.9-11.2) Urine Opiates Screen Urine Methadone Screen Ur Barbiturates Screen Ur Phencyclidine Scrn Ur Amphetamine Screen U Benzodiazepines Scrn Urine Cocaine Screen U Cannabinoids Screen RPR Pending Blood Type A Positive Antibody Screen Negative 03/23/22 06:24 WBC RBC Hgb Hct MCV MCH MCHC RDW Plt Count MPV Immature Gran % (Auto) Neut % (Auto) Lymph % (Auto) Tate % (Auto) Eos % (Auto) Baso % (Auto) Lymph # (Auto) Tate # (Auto) Eos # (Auto) Baso # (Auto) Abs Immat Gran (auto) Absolute Neuts (auto) Absolute Nucleated RBC Nucleated RBC % % Immature Plt Fraction Urine Opiates Screen Negative (Negative) Urine Methadone Screen Negative (Negative) Ur Barbiturates Screen Negative (Negative) Ur Phencyclidine Scrn Negative (Negative) Ur Amphetamine Screen Negative (Negative) U Benzodiazepines Scrn Negative (Negative) Urine Cocaine Screen Negative (Negative) U Cannabinoids Screen Negative (Negative) RPR Blood Type Antibody Screen Patient hx anesthesia problems: none Family hx anesthesia problems: none Results Review: All pre-operative results and documents have been reviewed as part of the pre-operative evaluation. [facility] Past Medical History Medical History Anxiety Encounter for general adult medical examination without abnormal findings UGO
--- NOTE | 2022-03-23 10:40 | PM.OBPRVD ---
OB - Delivery Note Procedure Delivery date: 03/23/22 Procedure: mil Induction method: AROM Delivery augmentation: Pitocin Delivery monitor: External FHT Route of delivery: Episiotomy description: None Laceration Description: None Quantitative Blood Loss (ml): 60 Anesthesia type: Epidural Disposition: Floor Baby Date of : 03/23/22 Time of : 10:32 Weeks of gestation at delivery: 39 Infant gender: Female presentation: vertex position: Right Occiput Anterior Placenta delivery description: Spontaneous Cord Vessel Description: 3 Vessels and Delayed Cord Clamping score one minute: 9 score five minutes: 9
[2022-03-23] MEDS: OXYTOCIN 30 UNITS/NS 500 ML 30 UNITS/500 ML BAG 125 UNITS IV CONT (11:03)
[2022-03-23] MEDS: WITCH HAZEL 40 PADS 1 PAD TOPICAL (12:41)
--- NOTE | 2022-03-23 12:58 | PC.NURSE ---
Patient transferred to post room #292 via (w/c ). Support person present. Oriented to unit, room, information board, rooming in, admission packet and security measures. Patient verbalizes understanding.
[2022-03-23] MEDS: IBUPROFEN 600 MG TABLET PO ×2 (13:25→19:50)
[2022-03-23] MEDS: ACETAMINOPHEN 325 MG TABLET 650 MG PO ×2 (15:05→21:44)
[2022-03-23 16:55] LABS: Rapid Plasma Reagin Non-Reactive (NonReactive)
[2022-03-23] MEDS: DOCUSATE SODIUM 100 MG CAPSULE PO (16:57)
[2022-03-24] MEDS: SIMETHICONE 80 MG TAB.CHEW PO (00:30)
[2022-03-24] MEDS: IBUPROFEN 600 MG TABLET PO ×2 (01:38→09:12)
[2022-03-24 04:00] VITALS: BP 125/74; PULSE 73; RESP 18; TEMP 36.4
[2022-03-24] MEDS: ACETAMINOPHEN 325 MG TABLET 650 MG PO ×2 (04:00→09:13)
[2022-03-24 04:54] LABS: Hematocrit 29.2 % (37.0-47.0); Hemoglobin 9.3 g/dL (12.0-15.0)
--- NOTE | 2022-03-24 07:19 | P.DS_ITS ---
DS: Admitting Diagnosis Discharge Date 03/24/2022 Admitting Diagnosis Term DS: Discharge Diagnosis Discharge Diagnosis (1) Term : Code(s): Z34.90 - Encounter for supervision of normal , unspecified, unspecified trimester Status: Acute DS: Summary Hospital Course Reason for hospitalization: Induction of labor at term Hospital Course: The patient was admitted for induction of labor at term. She underwent spontaneous vaginal delivery of a female which was unremarkable. Her 24hour course was unremarkable she remained afebrile. She was up, ambulating, voiding without difficulty, eating regular diet, and generally without complaints. Time Spent with Patient Time attestation: Total time spent providing and/or coordinating discharge services: Exam Const: General: cooperative, healthy appearing, comfortable and overweight Orientation/consciousness: oriented to person, oriented to place and oriented to time HENMT: Head: normal to inspection Resp: Effort & Inspection: normal respiratory effort Cardio: Rate: regular rate Rhythm: regular rhythm Heart sounds: S1 normal heart sound present and S2 normal heart sound present GI: Inspection: normal to inspection (Fundus firm below the umbilicus) DS: Data Data Completed and Pending Labs on day of discharge: Labs from last 24 hours 03/24/22 03/23/22 03/23/22 04:06 05:42 05:42 Hgb 9.3 L Hct 29.2 L RPR Non-reactive Antibody Screen Negative Discharge Plan Discharge Attending physician on discharge: Joon Nash Discharging Clinician: Joon Nash Patient Disposition: Home, Self-Care Activity: may shower and no straining Diet: heart healthy Wound Care Instructions: follow printed instructions Patient Instructions: Antibiotic Form Stand Alone Forms: General Discharge Information Follow-up/Referrals: Joon Nash MD [Physician] - Discharge Medications: Continued PNV cmb#95-ferrous fumarate-FA [] 28 mg iron- 800 mcg Tablet 1 tablet PO DAILY ondansetron HCl 4 mg tablet 4 mg PO Q6-12H PRN (Reason: Nausea) valacyclovir 500 mg tablet 500 mg PO DAILY Date of admission: 03/23/22 04:55 Primary Care Provider: PHYSICIAN,APPRAISAL SPECIALIST Admitting Provider: Joon Nash Attending physician on admission: Joon Nash Condition: Stable
--- NOTE | 2022-03-24 07:21 | PM.OBPNVD ---
OB - PN: Subj Subjective Date/time seen: 03/24/22 07:21 Patient comments: no complaints and pain well controlled baby status: doing well OB - PN: Obj Data Labs 03/24/22 04:06 Labs: Laboratory Results - last 24 hr 03/23/22 03/23/22 03/24/22 05:42 05:42 04:06 Hgb 9.3 L Hct 29.2 L RPR Non-reactive Antibody Screen Negative OB - PN A/P Plan day: 1 Plan: routine care, discharge home and follow up 6 weeks Time Spent With Patient Time: Total time spent is greater than 50% in coordination of care (as documented) at patient's floor/unit and/or counseling patient: Time with patient: less than 15 minutes Exam Const: General: cooperative, healthy appearing, comfortable and well groomed Nutritional Appearance: average body habitus Orientation/consciousness: oriented to person, oriented to place and oriented to time HENMT: Head: normal to inspection Resp: Effort & Inspection: normal respiratory effort Cardio: Rate: regular rate Rhythm: regular rhythm Heart sounds: S1 normal heart sound present and S2 normal heart sound present
[2022-03-24 07:55] VITALS: BP 111/63; PULSE 69; RESP 16; TEMP 36.8; O2SAT 100
--- NOTE | 2022-03-24 08:24 | WPDANLDPN2 ---
Anes-Prog Note L&D Date/Time: 03/24/22 08:24 Comfortable throughout: labor and delivery Neuraxial method: epidural Epidural/Spinal procedure site: tender Neuro status: Neuro function grossly intact. Cardiovascular status: normal Respiratory status: normal Airway patency: baseline Mental status: baseline Post-Op hydration status: normal Vital Signs: Last Vital Signs Temp 97.5 F L 03/24/22 04:00 Pulse 73 03/24/22 04:00 Resp 18 03/24/22 04:00 BP 125/74 03/24/22 04:00 Pulse Ox 100 03/23/22 17:00 O2 Del Method Room Air 03/23/22 19:50 Pain score (VAS): 2 I/O: Intake & Output 03/23/22 03/24/22 03/24/22 23:59 07:59 15:59 Intake Total 500 Balance 500 Post-procedural complaints: none Patient feedback: Patient satisfied with anesthetic care.
--- NOTE | 2022-03-24 08:45 | PC.NURSE ---
Pt introductions made and plan of care discussed per post , pain management, bottle feeding, daily care activities and pending discharge to home. PT and her mother recipients of such instructions and no barriers to learning identified at this time. PT received such instructions this shift per one to one discussion , mom baby care guide and demonstrations. PT verbalized understanding of such care.
[2022-03-24] MEDS: DOCUSATE SODIUM 100 MG CAPSULE PO (09:12)
[2022-03-24 09:13] VITALS: PULSE 69; RESP 16; O2SAT 100
[2022-03-24] MEDS: POLYSACCHARIDE IRON COMPLEX 150 MG CAPSULE PO (09:13)
--- NOTE | 2022-03-24 11:15 | PC.NURSE ---
PT received discharge instructions per protocol and verbalized understanding of such care. Patient was given the opportunity to view the discharge video Mother & Baby Care, The First Two Weeks and to ask questions. Patient declined viewing the video and has been given the mother/baby guide for home reference.
--- NOTE | 2022-03-24 11:50 | PC.NURSE ---
PT discharged to home ambulatory accompanied by mother and and taken to waiting car. Follow up appts confirmed
[2022-03-25 09:54] VITALS: BP 133/74; PULSE 77; RESP 16; TEMP 36.9; O2SAT 99
== END 2022-03-24 11:50 | disposition home or self-care (01) | DRG 807 ==
LOC: ANHLDR 04:57 → ANHOB2 13:02
PROVIDERS: Admitting Provider Obstetrics & Gynecology; Visit Provider Obstetrics & Gynecology
DX: O99.214 Obesity complicating childbirth (principal); Z37.0 Single live birth; E66.01 Morbid (severe) obesity due to excess calories; Z3A.39 39 weeks gestation of pregnancy
CPT/HCPCS: 36415; 80307; 85014; 85018; 85025; 85055; 86592; 86850; 86900; 86901; A9270; J2590; J2795; J7120

== ENCOUNTER 2022-09-24 14:05 | Outpatient (CLI) | payer OTHER, SELFPAY ==
--- NOTE | ~2022-09-24 | US_ITS ---
US right upper quadrant DATE: 09/24/2022 15:25 INDICATION: Right upper quadrant abdominal pain TECHNIQUE: Real-time imaging of liver, pancreas, gallbladder COMPARISON: July 04, 2020 right upper quadrant abdominal ultrasound examination FINDINGS: The pancreatic tail is not optimally visualized. The pancreas otherwise appears normal. No hepatic space-occupying mass lesion is evident. Normal hepatopedal portal venous flow direction. Small mobile filling defect in the posterior gallbladder may be a small hiatal concretion or gallston e. No gallbladder wall thickening or abnormal pericholecystic fluid collection is detected otherwise. The common bile duct measures 4 to 8 mm; correlation with serum bilirubin level is recommended. IMPRESSION: Small mobile hyperechoic filling defect of the dependent posterior gallbladder which may be a small bile concretion or very small gallstone Common bile duct measures 4-8 mm; recommend correlation with serum bilirubin. MRCP may be of benefit if clinically appropriate Reviewed, dictated and finalized at [facility]. Reviewed, dictated and finalized at [facility]. IMPRESSION: Small mobile hyperechoic filling defect of the dependent posterior gallbladder which may be a small bile concretion or very small gallstone Common bile duct measures 4-8 mm; recommend correlation with serum bilirubin. M [employer] WORKER may be of benefit if clinically appropriate
== END 2022-09-24 14:06 | disposition home or self-care (01) ==
PROVIDERS: PCP Nurse Practitioner Family; Visit Provider Nurse Practitioner Family
DX: R10.11 Right upper quadrant pain (principal)
CPT/HCPCS: 76705

== ENCOUNTER 2023-05-03 12:43 | Emergency (ER) | payer OTHER, SELFPAY ==
--- NOTE | ~2023-05-03 | CT_ITS ---
EXAMINATION: CT abdomen pelvis w con INDICATION: Right upper quadrant pain, history of gastric sleeve surgery TECHNIQUE: Computed tomographic images of the abdomen and pelvis were obtained after the administrati on of 100 cc of Omnipaque 350 intravenous contrast. The dose-length product (DLP) was 429.06 mGy-cm. Automated exposure control and iterative reconstruction technique were employed. COMPARISON: 12/21/2014 FINDINGS: Minimal dependent atelectasis is present in the lung bases. The heart size is normal. There is a small sliding hiatal hernia. Surgical changes in the stomach are consistent with history of gas tric sleeve surgery. The gallbladder is surgically absent. There is mild enlargement of the common bi le duct and central intrahepatic ducts which is likely due to post cholecystectomy state. There is mi ld splenomegaly. The liver, pancreas, and adrenal glands are normal. The kidneys are unremarkable. No pathologically enlarged abdominal or pelvic lymph nodes are identified. No free intraperitoneal gas or evidence of bowel obstruction. A moderate volume of colonic stool is present. There is an umbilica l hernia containing fat. R there is moderate thoracolumbar spondylosis. IMPRESSION: 1. Constipation. Reviewed, dictated and finalized at location [facility]. ROL INTEGRATION ENGINEER IMPRESSION: 1. Constipation.
[2023-05-03 12:59] VITALS: BP 151/89; PULSE 140; RESP 16; TEMP 36.7; O2SAT 100
--- NOTE | 2023-05-03 15:11 | ED.ABDPAIN ---
HPI - Abdominal Pain General Chief Complaint: Abdominal Pain <LIZZY Foley Last Filed: 05/03/23 15:21> Stated Complaint: RUQ ABD PAIN <LIZZY Foley Last Filed: 05/03/23 15:21> Time Seen by Provider: 05/03/23 15:11 <LIZZY Foley Last Filed: 05/03/23 15:21> Focused HPI: Patient is a 32 y/o female who presents to the ED with c/o RUQ abd pain. Patient reports having pain in her right upper abdomen for the last 2 weeks. States pain is intermittent. Tried taking Tylenol and using heating pad w/o improvement. No significant aggravating factors. Pain became significantly worse today at work and she prompted here. Patient has hx of gastric sleeve 4 years ago. She underwent revision to bypass with a cholecystectomy last November. States her current pain feels similar to what she experienced with her GB. Reports intermittent N/V, constipation with small hard stool. Denies rectal bleeding or melena. Denies fevers. Patient also reports hx of anemia and states she was found to have a Hgb in the 6 range last week. Received 2U transfusion at [facility] last week. Was also supposed to receive iron transfusion today. Does not see a epic anesthesia analyst. GENERAL: Well-appearing, well-nourished, and in no acute distress. HEAD: Normocephalic, atraumatic. CHEST: Clear to auscultation. ?No respiratory distress. ABD: TTP in RUQ and epigastric region. HEART: Regular rate and rhythm.? NEURO: ?Alert and oriented x3. Patient screened in triage and initial orders placed.? ?Additional care and disposition to be based upon?diagnostic testing and treatment. <LIZZY Foley Last Filed: 05/03/23 15:21> Source: patient <LIZZY Foley Last Filed: 05/03/23 15:21> Mode of arrival: ambulatory <LIZZY Foley Last Filed: 05/03/23 15:21> Limitations: no limitations <LIZZY Foley Last Filed: 05/03/23 15:21> History of Present Illness HPI narrative: 32-year-old female presents emergency department for evaluation of acute on chronic right upper quadrant pain. <Alexandre Robles MD - Last Filed: 05/03/23 18:51> Related Data Home Medications: Home Medications Medication Instructions Recorded Confirmed vit no.95-ferrous 1 tablet PO DAILY 02/26/22 03/23/22 fumarate 28 mg-folic acid 800 mcg tablet () ondansetron HCl 4 mg tablet 4 mg PO Q6-12H PRN Nausea 03/23/22 03/23/22 valacyclovir 500 mg tablet 500 mg PO DAILY 03/23/22 03/23/22 <Padmini Parker PA-C - Last Filed: 05/03/23 15:21> Allergies/Adverse Reactions: Allergies Allergy/AdvReac Type Severity Reaction Status Date / Time meperidine [From Demerol] AdvReac Mild Hypotension Verified 08/31/21 16:35 metformin AdvReac Mild dizziness Verified 08/31/21 16:35 <Padmini Parker PA-C - Last Filed: 05/03/23 15:21> Review of Systems Review of Systems: All systems reviewed & are unremarkable except as noted in HPI and below <Alexandre Robles MD - Last Filed: 05/03/23 18:51> PMFSH Past Medical History Medical History: Medical History Anxiety Encounter for general adult medical examination without abnormal findings GERD (gastroesophageal reflux disease) Morbid obesity <Padmini Parker PA-C - Last Filed: 05/03/23 15:21> Surgical History Surgical History: Surgical History History of endometriosis laparoscopic exploratory History of esophagogastroduodenoscopy (EGD) <Padmini Parker PA-C - Last Filed: 05/03/23 15:21> Family History Family History: Family History Father Family history of mental disorder Depression Grandparent Family history of lung cancer Family history of malignant neoplasm of uterus Family histo
[2023-05-03 15:28] LABS: Basophils Absolute Auto 0.1 K/mm3 (0.0-0.1); Eosinophils Percent Auto 0.8 % (0-4.4); Hemoglobin 9.2 g/dL (12.0-15.0); Immature Granulocyte Absolute 0.01 K/mm3 (0.00-0.031); Immature Granulocyte Percent A 0.2 % (0-0.5); Immature Platelet Fraction Pct 11.4 % (0.9-11.2); Lymphocytes Absolute Auto 1.92 K/mm3 (0.9-3.2); Lymphocytes Percent Auto 39.6 % (18.3-44.2); Mean Corpuscular HGB Conc 27.9 g/dl (32-36); Mean Corpuscular Hemoglobin 18.9 pg (26-34); Mean Corpuscular Volume 67.6 fl (80-100); Monocytes Absolute Auto 0.4 K/mm3 (0.1-0.6); Monocytes Percent Auto 9.1 % (2.6-8.5); Neutrophils Absolute Auto 2.4 K/mm3 (1.3-6.7); Neutrophils Percent Auto 49.3 % (45.5-73.1); Platelet Count Result 257 k/mm3 (150-375); Red Blood Count 4.88 M/mm3 (4.2-5.4); Red Cell Distribution Width 26.1 % (11.5-14.5); White Blood Count 4.9 K/mm3 (4.5-10.0)
[2023-05-03 15:29] VITALS: BP 101/59; PULSE 87; RESP 14; TEMP 36.9; O2SAT 100
[2023-05-03 15:37] LABS: Alanine Aminotransferase 48 U/L (6-35); Albumin Level 4.8 g/dL (3.5-5.1); Alkaline Phosphatase 57 U/L (38-126); Anion Gap 7 mmol/L (8-16); Aspartate Amino Transferase 46 U/L (14-36); Bilirubin,Total 0.5 mg/dL (0.2-1.3); Blood Urea Nitrogen 19 mg/dL (7-17); Calcium 9.3 mg/dL (8.4-10.2); Carbon Dioxide 26 mmol/L (22-30); Chloride 104 mmol/L (98-107); Estimated CRCL calculation 91 ml/min; Estimated Glomerular Filt Rate > 60; Glucose 89 mg/dL (65-110); Lipase 97 U/L (23-300); Potassium 4.7 mmol/L (3.4-5.0); Sodium 137 mmol/L (137-145)
[2023-05-03 15:38] LABS: Prothrombin Time 13.4 Seconds (11.1-14.7)
[2023-05-03 15:39] LABS: Partial Thromboplastin Time 30.5 SECONDS (22.3-36.8)
[2023-05-03 15:55] LABS: Platelet Estimate Adequate (Adequate)
[2023-05-03 15:56] LABS: Anisocytosis 3+ (NORMAL); Microcytosis 2+ (NORMAL); Schistocytes None Seen (NORMAL)
[2023-05-03 15:57] LABS: Hypochromasia 1+ (NORMAL)
[2023-05-03 18:07] VITALS: BP 101/59; PULSE 60; RESP 18; TEMP 36.6; O2SAT 98
== END 2023-05-03 18:09 | disposition home or self-care (01) ==
PROVIDERS: Physician Assistant; Emergency Provider Emergency Medicine; PCP Nurse Practitioner Family
DX: K59.00 Constipation, unspecified (principal); R10.11 Right upper quadrant pain; Z87.891 Personal history of nicotine dependence
CPT/HCPCS: 36415; 74177; 80053; 81025; 83690; 85025; 85055; 85610; 85730; 86850; 86900; 86901; 99284; Q9967

== ENCOUNTER 2023-08-07 10:09 | Emergency (ER) | payer OTHER, SELFPAY ==
--- NOTE | 2023-08-07 12:27 | PC.NURSE ---
patient walked out of ED with no difficulty. patient reports I have not been seen by a doctor yet and I am leaving.
== END 2023-08-07 12:32 | disposition left against medical advice (07) ==
PROVIDERS: Emergency Provider Emergency Medicine
DX: L98.9 Disorder of the skin and subcutaneous tissue, unspecified (principal)
CPT/HCPCS: 99199